=== PATIENT | female | born 1975 | race Caucasian/White ===

== ENCOUNTER → 2018-10-19 | Outpatient (CLI) | payer OTHER ==
[~2018-10-19] MED LIST: ACET500T68 PO; ALBU2.5V8 INH; CETI10TA22 PO; CHOL10003 PO; CRESTOR20 MG PO; DEXT10TA23 PO; DEXT5TAB27 PO; LORA10TA68 PO; MOME110A IH; MONT10TA49 PO; OMEP20TA63 PO; PREG75CA PO
[2018-10-19 16:25] LABS: BASO % 1 % (0-3); BILIRUBIN,URINE NEGATIVE (NEG); CLARITY,URINE CLEAR; COLOR,URINE YELLOW; EOS # 0.1 x10^3/uL (0.0-0.7); EOS % 2 % (0-3); HEMATOCRIT 38.4 % (36.0-47.0); HEMOGLOBIN 12.9 g/dL (12.0-15.5); LYMPH # 1.6 x10^3/uL (1.0-4.8); LYMPH % 25 % (24-48); MEAN CORPUSCULAR HEMOGLOBIN 30 pg (25-35); MEAN CORPUSCULAR HGB CONC 34 g/dL (31-37); MEAN CORPUSCULAR VOLUME 88 fL (79-100); MONO # 0.4 x10^3/uL (0.0-1.1); MONO % 7 % (0-9); NEUT # 4.3 x10^3/uL (1.8-7.7); NEUT % 66 % (31-73); NITRITE,URINE NEGATIVE (NEG); PH,URINE 6.5; PLATELET COUNT 255 x10^3/uL (140-400); PROTEIN,URINE NEGATIVE (NEG-TRACE); RED BLOOD COUNT 4.35 x10^6/uL (3.50-5.40); RED CELL DISTRIBUTION WIDTH 13.7 % (11.5-14.5); UROBILINOGEN,URINE 0.2 mg/dL (0.2 mg/dL); WHITE BLOOD COUNT 6.5 x10^3/uL (4.0-11.0)
[2018-10-19 16:46] LABS: ALBUMIN 3.8 g/dL (3.4-5.0); ALBUMIN/GLOBULIN RATIO 1.1 (1.0-1.7); CALCIUM 9.1 mg/dL (8.5-10.1); CREATININE 0.8 mg/dL (0.6-1.0); GFR 77.9; POTASSIUM 3.8 mmol/L (3.5-5.1); TOTAL BILIRUBIN 0.9 mg/dL (0.2-1.0); TOTAL PROTEIN 7.4 g/dL (6.4-8.2)
[2018-10-19 16:49] LABS: BACTERIA,URINE 0 /HPF (0-FEW); SQUAMOUS EPITHELIAL CELL,UR OCC /LPF; WBC,URINE 0 /HPF (0-4)
--- NOTE | 2018-10-20 08:54 | RAD ---
CHEST PA LATERAL Clinical indications: Preop study prior hysterectomy. History of asthma. COMPARISON: None available. Findings: No acute lung infiltrate or pleural effusion or pulmonary edema or lung mass or pneumothorax is seen. The heart size, pulmonary vasculature, mediastinum and both penny are unremarkable. The osseous structures appear intact. Impression: No acute radiographic abnormality is seen. Electronically signed by: Calvin Jack MD (10/20/2018 8:51 AM) [place] [id number]
== END | disposition home or self-care (01) ==
LOC: SURGPAT 14:23
PROVIDERS: ATTEND Obstetrics & Gynecology
DX: Z01.818 Encounter for other preprocedural examination (principal); J45.909 Unspecified asthma, uncomplicated; Z90.710 Acquired absence of both cervix and uterus
CPT/HCPCS: 36415; 71046; 80053; 81001; 85025

== ENCOUNTER 2018-10-26 05:55 | Observation (INO) | payer OTHER ==
[~2018-10-26] VITALS: Ht 160 cm; Wt 75.3 kg
[2018-10-26] MEDS ORDERED: GLYCOPYRROLATE 1 MG/5 ML VIAL. ONE (06:57)
[2018-10-26] MEDS ORDERED: KETOROLAC 30 MG/ML INJ FOR OR. INJ ONE (06:57)
[2018-10-26] MEDS ORDERED: ONDANSETRON PF 4 MG/2 ML VIAL. ONE (06:57)
[2018-10-26] MEDS ORDERED: PROPOFOL 20 ML IV ONE (06:57)
[2018-10-26] MEDS ORDERED: LIDOCAINE 2% PF 5 ML VIAL. ONE (06:57)
[2018-10-26] MEDS ORDERED: DEXAMETHASONE SOD PHOS 4 MG/ML VIAL ONE (06:57)
[2018-10-26] MEDS ORDERED: NEOSTIGMINE METHYLSULFATE 5 MG/5 ML SYRINGE. ONE (06:58)
[2018-10-26] MEDS ORDERED: MIDAZOLAM HCL/PF 2 MG/2 ML VIAL. ONE (06:58)
[2018-10-26] MEDS ORDERED: fentaNYL PF VIAL 100 MCG/2 ML VIAL ONE ×2 (06:58→10:49)
[2018-10-26] MEDS ORDERED: ROCURONIUM 100 MG/10 ML VIAL. ONE (06:58)
[2018-10-26] MEDS ORDERED: ceFAZolin 2GM PREMIX 2 GM/50 ML BAG IV ONE (07:00)
[2018-10-26] MEDS ORDERED: fentaNYL PF VIAL 100 MCG/2 ML VIAL IV PRN (07:00)
[2018-10-26] MEDS ORDERED: SCOPOLAMINE 1.5MG PATCH. TD ONE (07:00)
[2018-10-26] MEDS ORDERED: IV RINGERS,LACTATED 1000ML 1,000 ML IV SCH (07:00)
[2018-10-26] MEDS ORDERED: ONDANSETRON PF 4 MG/2 ML VIAL. IV PRN ×2 (07:00→10:30)
[2018-10-26] MEDS ORDERED: HYDROmorphone 2 MG/ML VIAL IV PRN (07:00)
[2018-10-26] MEDS ORDERED: PROCHLORPERAZINE 10 MG/2 ML VIAL. IV PRN (07:00)
[2018-10-26] MEDS ORDERED: ESTROGENS, CONJ VAGINAL CREAM 30GM TUBE. ONE (07:10)
[2018-10-26] MEDS ORDERED: INDIGOTINDISULFONATE SODIUM 40 MG/5 ML AMPUL. ONE (07:10)
[2018-10-26] MEDS ORDERED: BUPIVACAINE-EPI 0.25%-1:200000 MPF 30 ML VIAL. INJ ONE ×2 (07:30→09:30)
[2018-10-26] MEDS ORDERED: ALBUTEROL SULFATE 2.5 MG/3 ML NEBU. INH PRN (07:30)
[2018-10-26] MEDS ORDERED: NON FORMULARY ITEM (Mometasone Furoate (Asmanex) 110 MCG) IH SCH (09:00)
[2018-10-26] MEDS ORDERED: METHYLENE BLUE 1% 10 ML VIAL. ONE (10:01)
[2018-10-26] MEDS ORDERED: CALCIUM CARBONATE 500 MG TAB.CHEW PO PRN (10:30)
[2018-10-26] MEDS ORDERED: LACTULOSE 20 GM/30 ML SOLUTION. PO PRN (10:30)
[2018-10-26] MEDS ORDERED: MAGNESIUM HYDROXIDE 2,400 MG/30 ML ORAL.SUSP. PO PRN (10:30)
[2018-10-26] MEDS ORDERED: MAG HYDROX/ALUMINUM HYD/SIMETH 30 ML ORAL.SUSP PO PRN (10:30)
[2018-10-26] MEDS ORDERED: ZOLPIDEM 5 MG TABLET. PO PRN (10:30)
[2018-10-26] MEDS ORDERED: SIMETHICONE 80 MG TAB.CHEW PO PRN (10:30)
[2018-10-26] MEDS ORDERED: diphenhydrAMINE 50 MG/ML VIAL IV PRN (10:30)
[2018-10-26] MEDS ORDERED: MORPHINE SULFATE 2 MG/ML VIAL. IV PRN (10:30)
[2018-10-26] MEDS ORDERED: NALOXONE 0.4 MG/ML VIAL. IV PRN (10:30)
[2018-10-26] MEDS ORDERED: diphenhydrAMINE HCL 25 MG CAPSULE PO PRN (10:30)
[2018-10-26] MEDS ORDERED: 0.9 % SODIUM CHLORIDE 10 ML DISP.SYRIN. IV PRN (10:30)
[2018-10-26] MEDS ORDERED: oxyCODONE/APAP 5/325 1 TAB TABLET PO PRN (10:30)
--- NOTE | 2018-10-26 10:45 | PDOC ---
BRIEF OPERATIVE NOTE Date: Oct 26, 2018 Pre-Op Diagnosis menorrhagia, dysmenorrhea, pelvic pain Post-Op Diagnosis same plus endometriosis Procedure Performed LAVH/RSO/left salpingectomy/ vapo endometriosis and cystoscopy Surgeon Dr. Nora Estrella Mosaicist ALTAF Rogers Anesthesiologist Dr. Nunez Anesthesia Type: General Blood Loss 200cc IV Fluid see anesthesia records Urine Output 300cc clear via galloway Specimens Obtained cervix/uterus/left tube/right tube and ovary Findings enlarged RV uterus; evidence of endometriosis on right sidewall, L US ligament, small cyst on right ovary, grossly normal appendix Complications none Operative Note [id number] NORA ESTRELLA MD Oct 26, 2018 10:45
[2018-10-26] MEDS: fentaNYL PF VIAL 100 MCG/2 ML VIAL IV PRN ×4 (10:59→11:43)
[2018-10-26] MEDS ORDERED: MORPHINE SULFATE 2 MG/ML VIAL. ONE (11:21)
[2018-10-26] MEDS: MORPHINE SULFATE 2 MG/ML VIAL. IV PRN ×2 (11:25→11:53)
[2018-10-26] MEDS ORDERED: PREGABALIN 75 MG CAPSULE PO SCH (12:00)
[2018-10-26] MEDS: PANTOPRAZOLE 40 MG TABLET.DR. PO SCH (12:00)
[2018-10-26] MEDS ORDERED: PHENAZOPYRIDINE 200 MG TABLET. PO ONE (12:00)
[2018-10-26 12:35] VITALS: BP 95/51
[2018-10-26 12:50] VITALS: BP 98/59
--- NOTE | 2018-10-26 13:02 | OP ---
DATE OF SURGERY: 10/26/2018 PREOPERATIVE DIAGNOSES: Menorrhagia, dysmenorrhea, and pelvic pain. POSTOPERATIVE DIAGNOSES: Menorrhagia, dysmenorrhea, pelvic pain, and endometriosis. PROCEDURES: Laparoscopic-assisted vaginal hysterectomy, right salpingo-oophorectomy, left salpingectomy, vaporization of endometriosis, and cystoscopy. SURGEON: Lupe Estrella MD [employer] ARCHITECT: ALTAF Carballo ANESTHESIOLOGIST: Dr. Nunez. ANESTHESIA: General. ESTIMATED BLOOD LOSS: 200 mL. URINE OUTPUT: 300 mL clear via Rowan catheter. INTRAVENOUS FLUIDS: Please see Anesthesia notes. SPECIMENS: Cervix, uterus, left tube, and right tube and ovary. FINDINGS: Enlarged retroverted uterus, evidence of endometriosis on the right sidewall as well as the left uterosacral ligament, a small cyst on the right ovary, grossly normal appendix. COMPLICATIONS: None. DESCRIPTION OF PROCEDURE: This patient was taken to the operating room where general anesthesia was placed. The patient was placed in a dorsal lithotomy position in [facility]. The patient's abdomen and vagina were both prepped and draped in the normal sterile fashion and a Rowan catheter had been inserted under sterile technique. Upon my arrival, a time-out was performed where everyone agreed on the patient, the procedure, and that she had received her antibiotics etc., and at this point, a bivalve speculum was placed in the patient's vagina. A single-tooth tenaculum was used to grasp the anterior lip of the cervix. About 10 mL of 0.25% Marcaine with epinephrine was used to circumferentially inject around the cervix for both hemodissection and hemostatic purposes later. The Valtchev uterine manipulator was placed through the endocervical os, locked on the single-tooth tenaculum, and the bivalve speculum was then removed. Top gloves were discarded and changed. Attention was then turned to the abdomen where a small supraumbilical skin incision was made with the scalpel. A curved Jodi was used to dissect through the subcuticular layer to the fascia. The 5-mm Visiport was used to directly enter the abdominal cavity. Opening patient pressure was 3-4 mmHg. Carbon dioxide gas was used to then appropriately insufflate the abdominal cavity to maintain a pressure of 15 mmHg. The patient was placed in Trendelenburg position. Right and left lower quadrant ports were placed under direct visualization. They were 5 mm disposable atraumatic ports after transilluminating the abdominal wall, finding an area clear of any vasculature, and placing the trocars in. About 4-5 mL of air was placed in the cuff. The camera was moved to look at the umbilical one. It was clear and in a good spot as well, so it was insufflated with the 4-5 mL in the cuff as well. Camera was moved back to the midline. Left tube and ovary were elevated and looked. The ureter was found coursing low below this, but it looked okay. She did have some pretty good uterosacral ligament endometriosis. Right tube and ovary were okay. The right abdominal wall appeared okay. This was where she felt like she might have a hernia or pain, but she did have endometriosis on the right abdominal side wall. This was cauterized with the monopolar hook as well as uterosacral ligaments were cauterized with the monopolar hook as well. Once all this was done, the right ovary had a small cyst on it. This was the one where her pain was that she pointed out, so I could find the ureter coursing low. I went high on the IP ligament well above the ureter cauterizing and cutting the infundibulopelvic ligament, then going and staying under the tube to the uterus, crossing the right round ligament, cauterizing and cutting with the LigaSure the whole way, and then starting that bladder flap anteriorly with the monopolar hook. This was done on the left side except when I elevated the left tube and ovary, I kept the left ovary per the patient's request and went above the ovary below the tube and used the LigaSure to do just the mesosalpinx and do a salpingectomy on the left, and then crossing the left uterine ovarian pedicle and the left round ligament cauterizing and cutting and then getting the uterine vessels on this side as well and going down and making that bladder flap as well. We pushed cephalad on the manipulator, elevated the bladder peritoneum with the [place], and used the monopolar hook to cut across creating that bladder flap sharply and then going down through the cardinal and broad ligaments hugging the cervix on the left side to the level of the uterosacral and then on the right side going down and staying inside that first uterine pedicle and going down hugging the cervix and taking it down on the right side as well. The uterus was completely free and blanched at this point, so all instruments were removed and attention was turned vaginally. The single-tooth and Valtchev were removed. A weighted speculum was placed in the patient's vagina. Thyroid Clif clamps were placed on the anterior and posterior lips of the cervix respectively. A scalpel was used to make a circumferential incision in the cervix. An open Ray-Imani 4 x 4 was used to gently push up the anterior bladder peritoneum and the anterior cul-de-sac was digitally and bluntly entered easily. The Ray-Imani was removed and the curved Dinora was placed in the anterior cul-de-sac. The cervix was elevated and the posterior cul-de-sac was sharply entered with curved Cash scissors. A #0 Vicryl stitch was used to secure the posterior peritoneum here to the vaginal cuff. Once this was done, it was tagged with a curved Jodi clamp and the needle was cut and passed off. The short weighted speculum was removed and replaced with the long weighted Pierre speculum in the posterior cul-de-sac. Curved Kristal clamps x2 were placed on the patient's left uterosacral ligament where they were doubly clamped with curved Kristal's, cut with curved Cash scissors, and suture ligated x2 with 0 Vicryl. Second one was taken through the vaginal cuff securing the uterosacral ligament to the vaginal cuff. Once this was done, this was done exactly the same on the right side, double clamping the uterosacrals with curved Kristal's, cutting with Cash scissors, and suture ligating x2 with 0 Vicryl, taking the second one through the vaginal cuff, tagging it with a straight Jodi clamp, and cutting and passing the needle off. The remaining pedicles on both sides were delineated with the mixture and the vaginal LigaSure was used to cauterize and cut the remaining pedicles. The cervix, uterus, right tube and ovary were delivered in total. The left tube during the manipulation above had been previously pulled off and removed and passed off already, so the left tube was removed, but it was separate from the specimen and again, the left ovary remained with the patient per patient's request. So at this point, a sponge stick was used to examine the pedicles. There was some slight bleeding from the left uterosacral. This tag was burned off when I got the bleeding on the uterosacral, but that was okay, so the pedicles looked good with a sponge stick. I removed the long Pierre from the posterior cul-de-sac and placed it with the short weighted vaginal speculum. There was some slight cuff bleeding, that 2-0 Vicryl was put in and interrupted stitch on either side securing the posterior peritoneum to the vaginal cuff and this eliminated that bleeding as well. So at this point, the long Allis was used to grasp the anterior bladder peritoneum and 2-0 Vicryl was taken through the anterior bladder peritoneum, left uterosacral ligament, posterior peritoneum, and right uterosacral ligament, thus closing the peritoneum in a pursestring like fashion. Once this was done, the right uterosacral tag was clipped. The left one again had already come off. So at this point, the cuff was closed with a full length 2-0 Vicryl in a running locked fashion from the anterior to posterior running locked fashion and tied to that posterior vaginal cuff tag. Once this was done and it was hemostatic, all gloves were discarded and changed. Attention was then turned back above where gas was reinsufflated. The patient was placed back in Trendelenburg and copious irrigation did reveal hemostasis. Tisseel was placed over all of the pedicles; however, where I burned on the left and then this peritoneum hanging down on the right, I could watch the ureter going down on the right and had peristalsis, but I just could not follow it all the way down past the uterosacral area. I decided to go ahead and give methylene blue and perform a cystoscopy at this point just to ensure no damage to either ureter as the left side had the uterosacral burn with the ureter going near there with endo and the right side had that loose piece of peritoneum. It was hemostatic, but I just wanted to make sure as it was closed to the ureter that everything was intact and again I could watch it had peristalsis from above and there was no bleeding or fluid or anything in the cul-de-sac. I just was doing this to ensure everything was fine, so methylene blue was given and after the Tisseel was placed, there was no bleeding. Everything was hemostatic. All 3 trocar cuffs were deflated from that 4-5 mL of air; the right and left lower quadrant, once were taken out under direct visualization, they were hemostatic. Gas was released from the umbilical one and then it was removed as well. All three port sites were closed with 4-0 nylon at the skin and injected with 10 mL of local. At this point, I went below, the Rowan bulb was deflated and removed, and a cystoscopy was performed with a 70-degree cystoscope. The bladder bubble was seen, 300-400 mL of fluid was put in with good distention, no blood or damage to the bladder of course. I could find the left ureter immediately. The right one was harder to see, but I was able to finally see it. I waited and then I did see some methylene blue start to come through both, but I watched them both jet blue and I watched them both jet into the bladder clearly while draining some fluid out and watching for them. It took about 5-7 minutes because that methylene blue had been inserted above, so it took about 10-12 minutes but we did see that methylene blue come through and both did jet. So at this point, the cystoscopy was ended and the procedure was ended. The patient was then awakened from anesthesia and brought to recovery room in stable condition. LUPE ESTRELLA MD DR: KELLIE/isabella JOB#: [id number] / [id number]
[2018-10-26 13:10] VITALS: BP 97/54
[2018-10-26] MEDS ORDERED: OPIUM/BELLADONNA 30/16.2MG SUPP.RECT. PR PRN (13:15)
[2018-10-26 13:25] VITALS: BP 103/53
[2018-10-26] MEDS: HYDROcodone/APAP 5/325MG 1 TAB TABLET PO PRN (14:39)
[2018-10-26 15:25] VITALS: BP 101/54
[2018-10-26] MEDS: BUDESONIDE 0.5 MG/2 ML NEBU. NEB SCH (19:13)
[2018-10-26 19:37] VITALS: BP 89/49
[2018-10-26] MEDS ORDERED: MONTELUKAST SODIUM 10 MG TABLET. PO SCH (21:00)
[2018-10-26] MEDS: CETIRIZINE HCL 10 MG TABLET. PO SCH (21:00)
[2018-10-26] MEDS: PHENAZOPYRIDINE 200 MG TABLET. PO SCH (21:02)
[2018-10-27 02:10] VITALS: BP 82/47
[2018-10-27] MEDS: HYDROcodone/APAP 5/325MG 1 TAB TABLET PO PRN ×3 (02:37→13:04)
[2018-10-27 04:10] LABS: CALCIUM 7.8 mg/dL (8.5-10.1); CREATININE 0.8 mg/dL (0.6-1.0); GFR 77.9
[2018-10-27 07:08] VITALS: BP 84/46
[2018-10-27] MEDS: BUDESONIDE 0.5 MG/2 ML NEBU. NEB SCH (08:35)
[2018-10-27] MEDS: CETIRIZINE HCL 10 MG TABLET. PO SCH (09:23)
[2018-10-27] MEDS: PHENAZOPYRIDINE 200 MG TABLET. PO SCH (09:23)
[2018-10-27] MEDS: PANTOPRAZOLE 40 MG TABLET.DR. PO SCH (09:23)
--- NOTE | 2018-10-27 11:42 | PDOC ---
SURGICAL PROGRESS NOTE Subjective Doing well without complaints. Voiding without catheter. Scant VB only. Tolerating PO. Ambulating well. Wanting to go home today Vital Signs Vital Signs Date Time Temp Pulse Resp B/P (MAP) Pulse Ox O2 Delivery O2 Flow Rate FiO2 10/27/18 08:36 98 Room Air 10/27/18 07:08 98.4 65 18 84/46 (59) 98.4 10/26/18 11:25 10.0 I&O Intake and Output 10/27/18 07:00 Intake Total 2750 ml Output Total 1300 ml Balance 1450 ml Intake Oral 700 ml IV Total 2050 ml Output Urine Total 1100 ml Estimated Blood Loss 200 ml PATIENT HAS A BURNS: No General: Alert, Oriented X3, Cooperative, No acute distress HEENT: Atraumatic Heart: Regular rate Abdomen: Soft, No tenderness, Other (port sites c/d/i with bandaids) Extremities: No clubbing, No cyanosis, No edema, No tenderness/swelling Skin: No rashes, No breakdown Neuro: Normal speech Psych/Mental Status: Mental status NL Labs Laboratory Tests Test 10/26/18 06:22 10/27/18 03:05 Bedside Urine HCG, Qualitative Hcg negative (Negative) Hematocrit 29.8 % (36.0-47.0) Sodium Level 142 mmol/L (136-145) Potassium Level 4.0 mmol/L (3.5-5.1) Chloride Level 108 mmol/L (98-107) Carbon Dioxide Level 27 mmol/L (21-32) Anion Gap 7 (6-14) Blood Urea Nitrogen 9 mg/dL (7-20) Creatinine 0.8 mg/dL (0.6-1.0) Estimated GFR (Cockcroft-Gault) 77.9 Glucose Level 118 mg/dL (70-99) Calcium Level 7.8 mg/dL (8.5-10.1) Laboratory Tests Test 10/27/18 03:05 Hematocrit 29.8 % (36.0-47.0) Sodium Level 142 mmol/L (136-145) Potassium Level 4.0 mmol/L (3.5-5.1) Chloride Level 108 mmol/L (98-107) Carbon Dioxide Level 27 mmol/L (21-32) Anion Gap 7 (6-14) Blood Urea Nitrogen 9 mg/dL (7-20) Creatinine 0.8 mg/dL (0.6-1.0) Estimated GFR (Cockcroft-Gault) 77.9 Glucose Level 118 mg/dL (70-99) Calcium Level 7.8 mg/dL (8.5-10.1) I have reviewed the following labs, vitals, nursing Cardiovascular: No pertinent hx Pulmonary: Asthma Renal/: No pertinent hx Assessment/Plan POD#1 s/p LAVH/RSO/left salpingectomy/vapo endometriosis and cystoscopy Routine pO care d/c to home later today NPV x 6 weeks Light/limited activity x 2 weeks Keep scheduled follow up with me in office in one week already has Percocet filled at home OK for OTC ibuprofen as needed as well NO driving while on narcotic pain meds call or return sooner for any other questions or concerns not limited to but including pain unrelieved with pain meds, increased or unexplained vag bleeding or T>100.4 LUPE SMALL MD Oct 27, 2018 11:42
--- NOTE | 2018-10-27 11:45 | PDOC3 ---
Discharge Summary Visit Information Date of Admission: Oct 26, 2018 Date of Discharge: Oct 27, 2018 Final Diagnosis menorrhagia, dysmenorrhea, pelvic pain and endometriosis Brief Hospital Course Allergies Allergies Coded Allergies Type Severity Reaction Last Updated Verified hydroxychloroquine Allergy Intermediate Itching 10/26/18 Yes Vital Signs Vital Signs Date Time Temp Pulse Resp B/P (MAP) Pulse Ox O2 Delivery O2 Flow Rate FiO2 10/27/18 08:36 98 Room Air 10/27/18 07:08 98.4 65 18 84/46 (59) 98.4 10/26/18 11:25 10.0 Lab Results Laboratory Tests Test 10/26/18 06:22 10/27/18 03:05 Bedside Urine HCG, Qualitative Hcg negative (Negative) Hematocrit 29.8 % (36.0-47.0) Sodium Level 142 mmol/L (136-145) Potassium Level 4.0 mmol/L (3.5-5.1) Chloride Level 108 mmol/L (98-107) Carbon Dioxide Level 27 mmol/L (21-32) Anion Gap 7 (6-14) Blood Urea Nitrogen 9 mg/dL (7-20) Creatinine 0.8 mg/dL (0.6-1.0) Estimated GFR (Cockcroft-Gault) 77.9 Glucose Level 118 mg/dL (70-99) Calcium Level 7.8 mg/dL (8.5-10.1) Laboratory Tests Test 10/27/18 03:05 Hematocrit 29.8 % (36.0-47.0) Sodium Level 142 mmol/L (136-145) Potassium Level 4.0 mmol/L (3.5-5.1) Chloride Level 108 mmol/L (98-107) Carbon Dioxide Level 27 mmol/L (21-32) Anion Gap 7 (6-14) Blood Urea Nitrogen 9 mg/dL (7-20) Creatinine 0.8 mg/dL (0.6-1.0) Estimated GFR (Cockcroft-Gault) 77.9 Glucose Level 118 mg/dL (70-99) Calcium Level 7.8 mg/dL (8.5-10.1) Brief Hospital Course Ms. Aj is a 43 old female who presented with menorrhagia, dysmenorrhea and pelvic pain. She underwent an LAVH/RSO/left salpingectomy/vapo endometriosis and cystoscopy yesterday and was found to have enlarged fibroid uterus and endometriosis as well. She had some bladder spasms and trouble urinating yesterday but is able to void well without problems without catheter today. She is ambulating well, tolerating PO and desiring to go home. Discharge Information Condition at Discharge: Stable Follow Up: Weeks Disposition/Orders: D/C to Home Scheduled Acetaminophen (Acetaminophen) 500 Mg Tablet, 1 TAB PO Q6HRS for pain, #60 Ref 1 (Reported) Entered as Reported by: THOR WEEKS on 10/19/18 1503 Last Taken: Unknown Dose on 10/25/18 Last Action: HELD on 10/26/18731 by LUPE SMALL Cetirizine Hcl (Zyrtec) 10 Mg Tablet, 1 TAB PO DAILY for allergies, #30 Ref 2 (Reported) Entered as Reported by: THOR WEEKS on 10/19/18 1501 Last Taken: Unknown Dose on 10/25/18 Last Action: Continued on 10/26/18731 by LUPE SMALL Cholecalciferol (Vitamin D3) (Vitamin D3) 1,000 Unit Tablet, 1 TAB PO DAILY for vitamin, #30 Ref 5 (Reported) Entered as Reported by: THOR WEEKS on 10/19/18 1454 Last Taken: Unknown Dose on 10/23/18 Last Action: HELD on 10/26/18731 by LUPE SMALL Dextroamphetamine/Amphetamine (Adderall 10 Mg Tablet) 10 Mg Tablet, 10 MG PO DAILY for add, (Reported) Entered as Reported by: THOR WEEKS on 10/19/18 1455 Last Taken: Unknown Dose on 10/25/18 Last Action: HELD on 10/26/1832 by LUPE SMALL Dextroamphetamine/Amphetamine (Adderall 5 Mg Tablet) 5 Mg Tablet, 5 MG PO DAILY for add, (Reported) Entered as Reported by: THOR WEEKS on 10/19/18 1456 Last Taken: Unknown Dose on 10/25/18 Last Action: HELD on 10/26/1832 by LUPE SMALL Loratadine (Claritin) 10 Mg Tablet, 1 TAB PO DAILY for allergies, #30 Ref 5 ( Reported) Entered as Reported by: THOR WEEKS on 10/19/18 1457 Last Taken: Unknown Dose on 10/26/18 Last Action: HELD on 10/26/18731 by LUPE SMALL Mometasone Furoate (Asmanex) 110 Mcg Aer.pow.ba, 110 MCG IH BID for asthma, (Reported) Entered as Reported by: THOR WEEKS on 10/19/18 1453 Last Taken: Unknown Dose on 10/25/18 Last Action: Converted on 10/26/18731 by LUPE SMALL Montelukast Sodium (Montelukast Sodium Tablet ) 10 Mg Tablet, 10 MG PO HS for FOR ASTHMA, Ref 0 (Reported) Entered as Reported by: THOR WEEKS on 10/19/18 1501 Last Taken: Unknown Dose on 10/25/18 Last Action: Continued on 10/26/18731 by LUPE SMALL Omeprazole Magnesium (Prilosec Otc) 20 Mg Tablet.dr, 40 MG PO DAILY for reflux, (Reported) Entered as Reported by: THOR WEEKS on 10/19/18 1500 Last Taken: Unknown Dose on 10/26/18 0500 Last Action: Converted on 10/26/18731 by LUPE SMALL Pregabalin (Lyrica) 75 Mg Capsule, 1 CAP PO DAILY for fibromyalgia, #60 Ref 1 (Reported) Entered as Reported by: THOR WEEKS on 10/19/18 1459 Last Taken: Unknown Dose on 10/26/18 Last Action: Continued on 10/26/18731 by LUPE SMALL Rosuvastatin Calcium (Crestor) 20 Mg Tablet, 20 MG PO HS for FOR CHOLESTEROL, #30 Ref 0 (Reported) Entered as Reported by: THOR WEEKS on 10/19/18 1455 Last Taken: Unknown Dose on 10/25/18 Last Action: HELD on 10/26/18731 by LUPE SMALL Scheduled PRN Albuterol Sulfate (Proair Hfa) 8.5 Gm Hfa.aer.ad, 2 PUFF INH DAILY PRN for SHORTNESS OF BREATH, (Reported) Entered as Reported by: THOR WEEKS on 10/19/18 1502 Last Taken: Unknown Dose on 10/25/18 Last Action: Continued on 10/26/18731 by LUPE SMALL Patient Instructions Patient Instructions POD#1 s/p LAVH/RSO/left salpingectomy/vapo endometriosis and cystoscopy Routine pO care d/c to home later today NPV x 6 weeks Light/limited activity x 2 weeks Keep scheduled follow up with me in office in one week already has Percocet filled at home OK for OTC ibuprofen as needed as well NO driving while on narcotic pain meds call or return sooner for any other questions or concerns not limited to but including pain unrelieved with pain meds, increased or unexplained vag bleeding or T>100.4 LUPE SMALL MD Oct 27, 2018 11:45
[2018-10-27] MEDS ORDERED: ALBUTEROL SULFATE 2.5 MG/3 ML NEBU. NEB PRN (11:47)
[2018-10-27 11:58] VITALS: BP 105/58
--- NOTE | 2018-10-27 11:59 | NUR ---
home instructions on pt care. pt has appt AND MEDS AT HOME. no questions onhome care
--- NOTE | 2018-10-27 15:07 | PATHOLOGY ---
[facility] Accession Number: [id number] . 01 Material submitted: . uterus - CERVIX, UTERUS, BILATERAL TUBES AND RIGHT OVARY. Modifiers: bilateral . 01 Clinical history: . Menorrhagia . 02 Diagnosis: Cervix, uterus, both fallopian tubes and right ovary "cervix, uterus, bilateral tubes and right ovary", hysterectomy, bilateral salpingectomy and right oophorectomy: - Chronic cervicitis with reactive changes. - Focally polypoid disordered proliferative phase endometrium without hyperplasia or malignancy. - Focus of adenomyosis. - Multiple subserosal and intramural leiomyomas without any significant atypia, increased mitoses or necrosis. - Both fallopian tubes with no diagnostic changes. - Right ovary with benign follicular cyst. - There is no evidence of malignancy. (ERNST/db; 10/27/2018) LBQ/10/27/2018 . 02 Electronically signed: . David Cleary MD, Pathologist NPI- [id number] . 01 Gross description: . The specimen is received in formalin, labeled "Glenda Aj, cervix, uterus, bilateral tubes and right ovary" and consists of a 113 g uterus with attached cervix measuring 10.6 x 6.3 x 4.0 cm with attached right tubo-ovarian complex consisting of a fimbriated fallopian tube (5.5 cm in length and up to 0.5 cm in diameter) and right ovary (6 g, 3.2 x 2.8 x 1.3 cm). Detached is the left fimbriated fallopian tube measuring 6.0 cm in length and up to 0.4 cm in diameter. The uterine serosa is pink-greenberg, smooth, shiny with multifocal areas of nodularity. The gaping 1.6 cm cervical os as far by glistening pink-greenberg ectocervical mucosa. It is bivalved revealing a hemorrhagic and corrugated endocervical canal measuring 3.5 cm in length. The endometrial cavity is triangular measuring 5.3 cm in length and 3.4 cm in width which is lined by a red-greenberg endometrium measuring 0.1-0.2 cm. The cervix shows nabothian cysts up to 0.5 cm. The myometrium is pink-greenberg measuring up to 2.0 cm with multiple sub-serosal and intramural nodules measuring up to 0.8 cm. The nodules show homogeneous white whorled cut surfaces without hemorrhage, necrosis, or calcifications. No additional masses or lesions are identified. . Both fimbriated fallopian tubes are pink-high smooth and shiny with the right having a paratubal cyst measuring up to 0.3 cm. Sectioning each tube reveals a well-defined lumen and no gross lesions. The right ovary is pink-greenberg and cerebriform. Sectioning reveals multiple corpora albicantia, lutea with a single uniloculated cyst containing yellow viscous fluid measuring up to 1.1 cm. Filters Assembler sections are submitted as follows: . A1: Anterior cervix A2: Posterior cervix A3: Anterior endomyometrium A4: Posterior endomyometrium A5: Nodules A6: Right fallopian tube A7: Left fallopian tube A8: Right ovary (SDY; 10/26/2018) SYU/SYU . 02 Pathologist provided ICD-10: N72, N85.9, N80.0, D25.9, N83.01 . 02 CPT . 851878 Specimen Comment: A courtesy copy of this report has been sent to Specimen Comment: [phone]. Specimen Comment: Report sent to Performed at: 01 [facility] [address], [place] [id number] MD Xander Smith MD Phone: [phone] Performed at: 02 [facility] [address] [place], [place] [id number] MD Geraldo Dunham MD Phone: [phone]
== END 2018-10-27 13:36 | disposition home or self-care (01) ==
LOC: SURG 05:55 → EDUNIT# 07:30 → 3 NORTH 10:53
PROVIDERS: ADMIT Obstetrics & Gynecology; ATTEND Obstetrics & Gynecology
DX: N92.0 Excessive and frequent menstruation with regular cycle (principal); N94.6 Dysmenorrhea, unspecified; N92.6 Irregular menstruation, unspecified; R14.0 Abdominal distension (gaseous); J45.909 Unspecified asthma, uncomplicated; N80.9 Endometriosis, unspecified; D25.9 Leiomyoma of uterus, unspecified
CPT/HCPCS: 36415; 58552; 58662; 80048; 81025; 85014; 86850; 86900; 86901; 88307; 94640; A4314; A7015; G0378; G0379; J0696; J0780; J1100; J1885; J2001; J2250; J2270; J2405; J2704; J2710; J3010; J3490; J7030; J7120; J7626; Q9968